=== PATIENT | male | born 1930 | race Caucasian/White ===

== ENCOUNTER 2018-04-29 11:38 | Emergency (ER) | payer MEDICARE ==
--- NOTE | 2018-04-29 12:54 | RAD ---
INDICATION: Right clavicle injury COMPARISON: None TECHNIQUE: 2 views were obtained. FINDINGS: There is no clavicular fracture. There is mild a.c. and glenohumeral joint osteoarthritis. IMPRESSION: NO ACUTE FRACTURE.
--- NOTE | 2018-04-29 12:56 | RAD ---
INDICATION: Right elbow injury COMPARISON: None TECHNIQUE: AP, lateral, and oblique views were obtained. FINDINGS: There is minor underlying osteoarthritis but there is no acute fracture. There is is no joint effusion. There is soft tissue prominence at the biceps which could be related to biceps injury. This would be apparent clinically. IMPRESSION: NO ACUTE BONY FINDINGS
--- NOTE | 2018-04-29 12:57 | RAD ---
INDICATION: Fall. Right shoulder pain COMPARISON: None TECHNIQUE: Routine frontal, Y and axial views were obtained. FINDINGS: There is no acute bony change. There is a moderate a.c. and glenohumeral osteoarthritis. There are findings of calcific tendinitis. IMPRESSION: OSTEOARTHRITIS. CALCIFIC TENDINITIS.
[2018-04-29 14:35] VITALS: BP 134/86
--- NOTE | 2018-04-29 14:42 | ED ---
Upper Extremity Pain - HPI Summary HPI Summary: Patient is an 87-year-old male presenting to the ED after a fall last evening and now complaining of right shoulder and right elbow pain. There is abrasion to the right lateral side of the elbow. He endorses pain worsening to the right shoulder and is able to flex and extend at the elbow without pain. He is unable to abduct the shoulder, but is able to flex but not extend. 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 Onset/Duration: Started Hours Ago Timing: Constant Severity Initially: Moderate Severity Currently: Moderate Pain Location: Shoulder Character: Aching Aggravating Factor(s): Abduction Alleviating Factor(s): Rest, Ice, Compression Associated Signs & Symptoms: Negative: Swelling, Redness, Bruising, Weakness, Numbness/Tingling Related History: Dominant Hand Right - Risk Factors Non-Orthopedic Risk Factor: Negative DVT Risk Factors: Negative Septic Arthritis Risk Factor: Extremes of Age Compartment Syndrome Risk Factors: Pain - Allergies/Home Medications Allergies/Adverse Reactions: Allergies Allergy/AdvReac Type Severity Reaction Status Date / Time No Known Allergies Allergy Verified 04/29/18 11:40 PMH/Surg Hx/FS Hx/Imm Hx Previously Healthy: Yes Endocrine/Hematology History: Reports: Hx Thyroid Disease - ON MED Denies: Hx Diabetes Cardiovascular History: Reports: Hx Hypercholesterolemia, Other Cardiovascular Problems/Disorders - ONE STENT PLACED -2008, "leaky heart valve" Denies: Hx Hypertension, Hx Pacemaker/ICD GI History: Denies: Other GI Disorders History: Denies: Hx Dialysis, Hx Renal Disease Musculoskeletal History: Reports: Hx Arthritis Sensory History: Reports: Hx Contacts or Glasses - GLASSES Denies: Hx Hearing Aid Opthamlomology History: Reports: Hx Contacts or Glasses - GLASSES Psychiatric History: Denies: Hx Panic Disorder - Surgical History Surgery Procedure, Year, and Place: CARDIAC STENT. RT KNEE REPLACEMENT. 10/17 AND 11/18 LAMINECTOMY AND KYPHOPLASTY. BILATERAL SHOULDER ARTHROSCOPICS Hx Anesthesia Reactions: No - Immunization History Hx Pertussis Vaccination: No Immunizations Up to Date: Unable to Obtain/Confirm Infectious Disease History: No Infectious Disease History: Denies: Traveled Outside the [place] in Last 30 Days - Social History Occupation: Unemployed Lives: Alone Alcohol Use: Weekly Hx Substance Use: No Substance Use Type: Reports: None Hx Tobacco Use: Yes Smoking Status (MU): Former Smoker Type: Cigarettes Amount Used/How Often: 1-2 PPD Length of Time of Smoking/Using Tobacco: 10 Have You Smoked in the Last Year: No Review of Systems Constitutional: Negative Negative: Fever, Chills, Fatigue Negative: Palpitations, Chest Pain Negative: Shortness Of Breath, Cough Genitourinary: Negative Positive: no symptoms reported, see HPI Positive: Arthralgia - right shoulder - unable to abduct past 30 degrees, Myalgia Positive: Other - right elbow avulsion to the skin Neurological: Negative All Other Systems Reviewed And Are Negative: Yes Physical Exam Triage Information Reviewed: Yes Vital Signs On Initial Exam: Initial Vitals Temp Pulse Resp BP Pulse Ox 98.8 F 92 18 156/98 96 04/29/18 11:40 04/29/18 11:40 04/29/18 11:40 04/29/18 11:40 04/29/18 11:40 Vital Signs Reviewed: Yes Appearance: Positive: No Pain Distress, Well-Nourished Skin: Positive: Warm, Skin Color Reflects Adequate Perfusion Head/Face: Positive: Normal Head/Face Inspection Neck: Positive: Supple, No Lymphadenopathy Respiratory/Lung Sounds: Positive: Clear to Auscultation, Breath Sounds Present Cardiovascular: Positive: RRR, Pulses are Symmetrical in both Upper and Lower Extremities Musculoskeletal: Positive: Pain @ - right shoulder pain s/p fall -- RTC Neurological: Positive: Speech Normal Psychiatric: Positive: Normal, Affect/Mood Appropriate AVPU Assessment: Alert Diagnostics - Vital Signs Vital Signs Temp Pulse Resp BP Pulse Ox 04/29/18 11:40 98.8 F 92 18 156/98 96 - Laboratory Lab Statement: Any lab studies that have been ordered have been reviewed, and results considered in the medical decision making process. Course/Dx - Course Course Of Treatment: The patient is evaluated for right shoulder, right elbow pain and an abrasion/avulsion to the lateral right elbow. Shoulder and elbow x- rays obtained which showed no acute bony findings, however osteoarthritis. Patient is unable to abduct past 30, symptoms resolved at rest and internal rotation. I discussed with the patient this may be a rotator cuff injury and will need to follow-up with orthopedics. Patient declines sling. Patient has pain medication at home as needed and will encourage ibuprofen short-term. Abrasion was cleaned, occlusive gauze applied and gauze wrapped. - Diagnoses Differential Diagnosis/HQI/PQRI: Positive: Contusion, Fracture (Closed), Strain , Sprain Provider Diagnoses: Injury of right shoulder Discharge - Sign-Out/Discharge Documenting (check all that apply): Discharge/Admit/Transfer - Discharge Plan Condition: Stable Disposition: HOME Patient Education Materials: Rotator Cuff Injury (ED) Referrals: Darrin Islas MD [Medical Doctor] - Jimmie Barber MD [Primary Care Provider] - Additional Instructions: Please follow up with orthopedics Call tomorrow for an appt Take pain medications as needed - Billing Disposition and Condition Condition: STABLE Disposition: Home
== END 2018-04-29 14:33 | disposition home or self-care (01) ==
LOC: ED 11:38
DX: S49.91XA Unspecified injury of right shoulder and upper arm, initial encounter (principal); S50.311A Abrasion of right elbow, initial encounter; W19.XXXA Unspecified fall, initial encounter; Y92.9 Unspecified place or not applicable; M19.011 Primary osteoarthritis, right shoulder; M75.31 Calcific tendinitis of right shoulder; E07.9 Disorder of thyroid, unspecified; Z79.899 Other long term (current) drug therapy; Z87.891 Personal history of nicotine dependence
CPT/HCPCS: 99282

== ENCOUNTER 2018-05-21 18:51 | Emergency (ER) | payer MEDICARE ==
--- OUTSIDE RECORDS SUMMARY | 2018-05-21 19:43 | XMS REPORT ---
:1930 External Reference #:[id number] Author Organization [employer] Address [address] [place] [address] [place] [address] Phone [phone] Care Team Providers Name Role Phone Jimmie Barber MD Primary Care Physician Unavailable Payers Type Date Identification Numbers Payment Provider Subscriber Commercial Effective: Policy Number: [id number] er Prog/Todays Carlos De Jesus 2007 Options Expires: 2012 PayID: [id number] [address] [address] Attn: [place] [address] [facility] Policy Number: [id number] Medicare Carlos De Jesus PayID: [id number] [address] [place] [address] Problems Date Description Provider Status Onset: 03/20/2014 Closed fracture of lumbar vertebra Beny Hi M.D. Active without spinal cord injury Onset: 05/01/2018 Disorder of bursa of shoulder region Darrin Islas MD Active Onset: 05/30/2016 Low back pain Beny Hi M.D. Active Family History Date Family Member(s) Problem(s) Comments General Osteoporosis General Thyroid Disease Social History Type Date Description Comments Lives With Alone Occupation Retired ETOH Use Denies alcohol use Smoking Patient is a former smoker Recreational Drug Use Denies Drug Use Allergies, Adverse Reactions, Alerts Date Description Reaction Status Severity Comments 03/20/2014 NKDA active Medications Medication Date Status Form Strength Qnty SIG Indications Ordering Provider Aspirin Ec 00/00/ Active Tablets DR 81mg 90tab 1 tablet Unknown Lo-Dose 0000 s daily. Plavix 00/00/ Active Tablets 75mg 30tab 1 by Unknown 0000 s mouth every day Tylenol Extra 00/ Active Tablets 500mg 100ta 2 by Unknown Strength 0000 bs mouth as needed Levothyroxine 00/ Active Tablets 112mcg 90tab 1 by Unknown Sodium 0000 s mouth every day Vitamin B12 / Active Tablets 100mg 90tab once a Unknown 0000 s day Lovastatin / Active Tablets 20mg 90tab by mouth Unknown 0000 s every night at bedtime Cyclobenzaprine / Hx Tablets 5mg 30tab take 1 Unknown HCL 0000 - s tablet 04/10/ by mouth 2013 three times as needed Lisinopril / Hx Tablets 20mg 90tab 1 by Unknown 0000 - s mouth 04/10/ 2013 day Meloxicam / Hx Tablets 7.5mg 30tab 1 by Unknown 0000 - s mouth 04/10/ 2013 day Pravastatin / Hx Tablets 40mg 90tab 1 tablet Unknown Sodium 0000 - s daily at 09/10/ bedtime 2013 Milk Of Magnesia / Hx Suspension 400mg/5ML 473un 30 ml's Unknown 0000 - its on the 2013 with no bm as needed Medications Administered in Office Medication Date Status Form Strength Qnty SIG Indications Ordering Provider Depomedrol Administered Injection Aminta 40MG 018 Marker, RPA-C Vital Signs Date Vital Result Comment 05/01/2018 Height 63 inches 5'3" Weight 163.75 lb Heart Rate 72 /min BP Systolic 136 mmHg BP Diastolic 78 mmHg Respiratory Rate 12 /min Pain Level 8 BMI (Body Mass Index) 29.0 kg/m2 04/21/2017 Height 63 inches 5'3" Weight 176.00 lb Heart Rate 68 /min BP Systolic Sitting 124 mmHg BP Diastolic Sitting 70 mmHg Pain Level 10 BMI (Body Mass Index) 31.2 kg/m2 05/30/2016 Height 63 inches 5'3" Weight 176.00 lb Heart Rate 70 /min BP Systolic Sitting 140 mmHg BP Diastolic Sitting 80 mmHg Pain Level 5 BMI (Body Mass Index) 31.2 kg/m2 05/30/2016 Height 63 inches 5'3" 09/11/2014 Height 63 inches 5'3" Weight 176.00 lb Heart Rate 78 /min BP Systolic Sitting 140 mmHg BP Diastolic Sitting 90 mmHg Pain Level 5 back,leg's BMI (Body Mass Index) 31.2 kg/m2 09/10/2014 Height 63 inches 5'3" Weight 176.00 lb Heart Rate 62 /min BP Systolic Sitting 120 mmHg BP Diastolic Sitting 80 mmHg Pain Level 8 back,hips & legs BMI (Body Mass Index) 31.2 kg/m2 04/10/2014 Weight 169.75 lb Heart Rate 88 /min BP Systolic 118 mmHg BP Diastolic 66 mmHg Body Temperature 97.8 F Pain Level 2 hurts around waist 03/20/2014 Height 63 inches 5'3" Weight 169.00 lb BP Systolic 120 mmHg BP Diastolic 60 mmHg Pain Level 9 low back BMI (Body Mass Index) 29.9 kg/m2 Results Test Date Test Result H/L Range Note Istat BUN/Crea/Egfr/V Mainct 04/18/2017 Poc Bun Mainct 17 mg/dL 9-18 Poc Crea Mainct 1.2 mg/dL High 0.6-0.9 GFR Non- MCT 57.7 >60 GFR Mainct 74.2 >60 1 1 Because ethnic data is not always readily available, this report includes an eGFR for both -Americans and non- Americans. The National Kidney Disease Education Program (NKDEP) does not endorse the use of the MDRD equation for patients that are not between the ages of 18 and 70, are , have extremes of body size, muscle mass, or nutritional status, or are non- or non-. According to the National Kidney Foundation, irrespective of diagnosis, the stage of the disease is based on the level of kidney function: Stage Description GFR(mL/min/1.73 m(2)) 1 Kidney damage with normal or decreased GFR 90 2 Kidney damage with mild decrease in GFR 60-89 3 Moderate decrease in GFR 30-59 4 Severe decrease in GFR 15-29 5 Kidney failure <15 (or dialysis) Procedures Date CPT Code Description Status 05/01/2018 22511 Inject/Drain Joint/Bursa Major W/O US Completed 04/03/2014 16065 EKG, Interpretation Only Completed 04/02/2014 44681 EKG, Interpretation Only Completed 04/02/2014 60167 EKG, Interpretation Only Completed 04/02/2014 15572 PRQ Vetebral Augmentation Lumbar (kyphoplasty) Completed 08/15/2008 56307 Treadmill Interp/Report Only Completed 08/15/2008 26824 Stress Test Supervsn W/Out I/R Completed 08/15/2008 53310 Stress Test Supervsn W/Out I/R Completed Encounters Type Date Location Provider CPT E/M Dx Office Visit 05/01/2018 [facility], 77297 M75.51 1:45p Amrita CABALLERO W19.xxxA Office Visit 04/21/2017 10:30a [facility] Beny Hi M.D. 88125 M54.5 Of [facility] Office Visit 05/30/2016 3:30p [facility] Grace Fiore PA-C 10381 M54.5 Of [facility] Office Visit 09/11/2014 3:15p [facility] Beny Hi M.D. 56488 805.4 Of [facility] V13.51 Office Visit 09/10/2014 9:45a [facility] Beny Hi M.D. 60585 805.4 Of [facility] V13.51 729.5 Office Visit 04/02/2014 2:15p [facility] Sheila Coon, 96188 427.0 [facility] 805.8 401.9 Office Visit 03/20/2014 10:30a [facility] Beny Hi M.D. 44256 805.4 Of [facility] Plan of Care Future Appointment(s):06/12/2018 1:30 pm - D[facility]in [facility]las [facility] at [facility]/01[facility]2018 - Darrin Islas, MDM75.51 Bursitis of right shoulderNew Therapy:Physical TherapyFollow up:Follow up: 6 [id number] Unspecified fall, initial encounter
--- NOTE | 2018-05-21 20:47 | ED ---
Complex/Multi-Sys Presentation - HPI Summary HPI Summary: This is scribanne Al documenting for attending physician Carlos Shelton M.D. Pt is a 87 y/o M w/ c/o injury on right lower leg and right arm. Three days ago, he states lower leg was pulled by dog. Wound to right leg is erythematous, swollen, and warm to touch. Pt also notes an abrasion to right arm which he reports has been present for four weeks, as well as shoulder pain. On triage, pain is rated 7/10 and movement + palpations of right arm and leg are noted to worsen pain. He denies fever and loss of appetite. Pt also claims to have fallen 2-3 times in the past week. - History Of Current Complaint Chief Complaint: EDExtremityLower Hx Obtained From: Patient Onset/Duration: Lasting Days - right leg, Lasting Weeks - right arm, Still Present Timing: Constant Severity Initially: Moderate - 7/10 Location: Pain At: - right lower leg, right arm, shoulders Aggravating Factor(s): movement and palpation of right leg and arm Associated Signs And Symptoms: Positive: Recent Trauma - dog pulled right lower leg; reports falling 2-3 times last week, Other - pain, erythema, edema, and warm to touch, of right leg; abrasion right arm; shoulder pain - Allergies/Home Medications Allergies/Adverse Reactions: Allergies Allergy/AdvReac Type Severity Reaction Status Date / Time No Known Allergies Allergy Verified 05/21/18 19:02 PMH/Surg Hx/FS Hx/Imm Hx Endocrine/Hematology History: Reports: Hx Thyroid Disease - ON MED Denies: Hx Diabetes Cardiovascular History: Reports: Hx Hypercholesterolemia, Other Cardiovascular Problems/Disorders - ONE STENT PLACED -2008, "leaky heart valve" Denies: Hx Hypertension, Hx Pacemaker/ICD GI History: Denies: Other GI Disorders History: Denies: Hx Dialysis, Hx Renal Disease Musculoskeletal History: Reports: Hx Arthritis Sensory History: Reports: Hx Contacts or Glasses - GLASSES Denies: Hx Hearing Aid Opthamlomology History: Reports: Hx Contacts or Glasses - GLASSES Psychiatric History: Denies: Hx Panic Disorder - Surgical History Surgery Procedure, Year, and Place: CARDIAC STENT. RT KNEE REPLACEMENT. 10/17 AND 11/18 LAMINECTOMY AND KYPHOPLASTY. BILATERAL SHOULDER ARTHROSCOPICS Hx Anesthesia Reactions: No Infectious Disease History: No Infectious Disease History: Denies: Traveled Outside the [place] in Last 30 Days - Family History Known Family History: Negative: Blood Disorder - Social History Alcohol Use: Weekly Hx Substance Use: No Substance Use Type: Reports: None Hx Tobacco Use: Yes Smoking Status (MU): Former Smoker Type: Cigarettes Amount Used/How Often: 1-2 PPD Length of Time of Smoking/Using Tobacco: 10 Have You Smoked in the Last Year: No Review of Systems Negative: Fever Positive: Other - NEGATIVE: loss of appetite Positive: Other - right lower leg warm to touch, erythema, edema, and pain; shoulder pain Positive: Other - right arm abrasion All Other Systems Reviewed And Are Negative: Yes Physical Exam - Summary Physical Exam Summary: Appearance: Well-appearing, Well-nourished, lying in bed comfortable Skin: Warm, dry; right elbow has superficial half dollar shaped wound w/o infection. Right mid leg, small abrasion with surrounding cellulitis w/o lymphangetic streaking and fluctuance Eyes: sclera anicteric, no conjunctival pallor ENT: mucous membranes moist Neck: deferred Respiratory: No signs of respiratory distress Cardiovascular: Appears well perfused, pulses are nml Abdomen: deferred Musculoskeletal: Moving all 4 extremities without obvious discomfort Neurological: Awake and alert, mentation is normal, speech is fluent and appropriate Psychiatric: affect is normal, does not appear anxious or depressed Triage Information Reviewed: Yes Vital Signs On Initial Exam: Initial Vitals Temp Pulse Resp BP Pulse Ox 98.4 F 90 17 155/100 95 05/21/18 19:02 05/21/18 19:02 05/21/18 19:02 05/21/18 19:02 05/21/18 19:02 Vital Signs Reviewed: Yes Diagnostics - Vital Signs Vital Signs Temp Pulse Resp BP Pulse Ox 05/21/18 19:02 98.4 F 90 17 155/100 95 - Laboratory Result Diagrams: 05/21/18 21:22 05/21/18 21:22 Lab Statement: Any lab studies that have been ordered have been reviewed, and results considered in the medical decision making process. Complex Multi-Symp Course/Dx - Diagnoses Provider Diagnoses: Cellulitis Discharge - Sign-Out/Discharge Documenting (check all that apply): Patient Departure - Discharge Plan Condition: Good Disposition: HOME Prescriptions: Cefadroxil CAP* [Duricef CAP*] 500 mg PO BID #20 cap Patient Education Materials: Cellulitis (ED) Referrals: Marlon Mcfarlane MD [Medical Doctor] - Jimmie Barber MD [Primary Care Provider] - Additional Instructions: I think you might benefit by being seen in the wound clinic. You can call your primary doctor and see if they can give you a referral. The elbow wound may need some specialized dressing to help it heal properly. In the meantime just keep a non adherent gauze dressing on it. - Billing Disposition and Condition Condition: GOOD Disposition: Home
[2018-05-21] MEDS ORDERED: Cefadroxil CAP* 500 MG PO ONE (20:50)
[2018-05-21 21:38] LABS: ABS Basophils 0 10^3/ul (0-0.2); ABS Eosinophils 0.3 10^3/ul (0-0.6); ABS Lymphocytes 0.9 10^3/ul (1.0-4.8); ABS Monocytes 0.5 10^3/ul (0-0.8); ABS Nucleated RBC 0 10^3/ul; Eosinophil % 4.9 % (0-6); Hematocrit 37 % (42-52); Hemoglobin 12.4 g/dl (14.0-18.0); Lymphocyte % 16.3 % (25-47); Mean Corpuscular HGB Conc 34 g/dl (31-36); Mean Corpuscular Hemoglobin 30 pg (27-31); Mean Corpuscular Volume 90 fL (80-94); Mean Platelet Volume 8.4 um3 (7.4-10.4); Nucleated Red Blood Cells % 0; Platelet Count 219 10^3/ul (150-450); Red Blood Count 4.13 10^6/ul (4.00-5.40); Red Cell Distribution Width 15 % (10.5-15); White Blood Count 5.8 10^3/ul (3.5-10.8)
[2018-05-21 21:47] LABS: EGFR Non-African American 64.3 (>60)
[2018-05-21 22:11] VITALS: BP 145/98
== END 2018-05-21 22:07 | disposition home or self-care (01) ==
LOC: ED 18:51
DX: L03.115 Cellulitis of right lower limb (principal); S40.811A Abrasion of right upper arm, initial encounter; W18.30XA Fall on same level, unspecified, initial encounter; Z91.81 History of falling; Y93.9 Activity, unspecified; Y92.9 Unspecified place or not applicable; M25.511 Pain in right shoulder; E07.9 Disorder of thyroid, unspecified; E78.00 Pure hypercholesterolemia, unspecified; I38 Endocarditis, valve unspecified; Z95.5 Presence of coronary angioplasty implant and graft; M19.90 Unspecified osteoarthritis, unspecified site; Z96.651 Presence of right artificial knee joint; Z87.891 Personal history of nicotine dependence
CPT/HCPCS: 36415; 80048; 85025; 99282; A9270-GY

== ENCOUNTER 2019-09-21 17:02 | Emergency (ER) | payer MEDICARE ==
--- NOTE | 2019-09-21 18:25 | ED ---
Back Pain - HPI Summary HPI Summary: Patient with history of chronic back pain complains of significant increase in pain over the past couple days radiating to bilateral hips. Pain with movement , minimal pain at rest. Denies trauma, leg pain, fever, cough, sore throat, CP , SOB, N/V/D, abdominal pain, change in urine, change in BM, testicular or penile symptoms. Patient has existing Rx for hydrocodone 10 mg, receives seven- day supply every 3 months which he uses for breakthrough pain. Patient states he has been taking them more frequently in the past couple days with moderate relief of pain. States he saw Dr. Hi "couple years ago" for lumbar vertebral fracture. - History of Current Complaint Chief Complaint: EDBackInjuryPain Stated Complaint: BACK PAIN PER PT Time Seen by Provider: 09/21/19 18:04 Hx Obtained From: Patient, Family/Certified Professional Midwife Onset/Duration: Gradual Onset, Lasting Days Onset/Duration: Started Days Ago Timing: Intermittent Back Pain Location: Radiates To Severity Initially: Moderate Severity Currently: Severe Pain Intensity: 10 Pain Scale Used: 0-10 Numeric Character: Sharp, Aching, Throbbing Aggravating Symptom(s): Movement, Bending, Walking Alleviating Symptom(s): Rest, Position Associated Signs And Symptoms: Positive: Negative - Risk Factors Cauda Equina Risk Factors: Negative - Allergies/Home Medications Allergies/Adverse Reactions: Allergies Allergy/AdvReac Type Severity Reaction Status Date / Time No Known Allergies Allergy Verified 09/21/19 17:06 PMH/Surg Hx/FS Hx/Imm Hx Endocrine/Hematology History: Reports: Hx Thyroid Disease - ON MED Denies: Hx Diabetes Cardiovascular History: Reports: Hx Hypercholesterolemia, Other Cardiovascular Problems/Disorders - ONE STENT 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 RT KNEE REPLACEMENT. 10/17 AND 11/18 LAMINECTOMY AND KYPHOPLASTY. BILATERAL SHOULDER ARTHROSCOPICS Hx Anesthesia Reactions: No Infectious Disease History: No Infectious Disease History: Denies: Traveled Outside the [place] in Last 30 Days - Family History Known Family History: Negative: Blood Disorder - Social History Alcohol Use: Weekly Hx Substance Use: No Substance Use Type: Reports: None Hx Tobacco Use: Yes Smoking Status (MU): Former Smoker Type: Cigarettes Amount Used/How Often: 1-2 PPD Length of Time of Smoking/Using Tobacco: 10 Have You Smoked in the Last Year: No Review of Systems Constitutional: Negative Eyes: Negative ENT: Negative Cardiovascular: Negative Respiratory: Negative Gastrointestinal: Negative Genitourinary: Negative Musculoskeletal: Other Skin: Negative Neurological: Negative Psychological: Normal All Other Systems Reviewed And Are Negative: Yes Physical Exam - Summary Physical Exam Summary: Neuro exam normal. PMS intact bilateral lower extremities. No pain with palpation of lower back, hips or lower extremities.. No ecchymosis, erythema, deformity, swelling, mass noted to spine or bilateral lower extremities or hips. Flexion of bilateral hips causes pain in hips and back. Triage Information Reviewed: Yes Vital Signs On Initial Exam: Initial Vitals Temp Pulse Resp BP Pulse Ox 97.3 F 89 16 158/83 95 09/21/19 17:02 09/21/19 17:02 09/21/19 17:02 09/21/19 17:02 09/21/19 17:02 Vital Signs Reviewed: Yes Appearance: Positive: Well-Appearing Skin: Positive: Warm Head/Face: Positive: Normal Head/Face Inspection Eyes: Positive: Normal Neck: Positive: Supple Respiratory/Lung Sounds: Positive: Clear to Auscultation Cardiovascular: Positive: Normal Abdomen Description: Positive: Nontender Musculoskeletal: Positive: Normal Neurological: Positive: Normal Psychiatric: Positive: Normal AVPU Assessment: Alert - [place] Coma Scale Best Eye Response: 4 - Spontaneous Best Motor Response: 6 - Obeys Commands Best Verbal Response: 5 - Oriented Coma Scale Total: 15 Procedures - Sedation Patient Received Moderate/Deep Sedation with Procedure: No Diagnostics - Vital Signs Vital Signs Temp Pulse Resp BP Pulse Ox 09/21/19 17:02 97.3 F 89 16 158/83 95 - Laboratory Lab Statement: Any lab studies that have been ordered have been reviewed, and results considered in the medical decision making process. Back Pain Course/Dx - Course Course Of Treatment: There triplicate form Patient with history of chronic back pain complains of significant increase in pain over the past couple days radiating to bilateral hips. Pain with movement, minimal pain at rest. Denies trauma, leg pain, fever, cough, sore throat, CP, SOB, N/V/D, abdominal pain, change in urine, change in BM, testicular or penile symptoms. Patient has existing Rx for hydrocodone 10 mg, receives seven-day supply every 3 months which he uses for breakthrough pain. Patient states he has been taking them more frequently in the past couple days with moderate relief of pain. States he saw Dr. Hi "couple years ago" for lumbar vertebral fracture, had "some procedure done" and then was told "there was nothing else they could do for him ". Vital signs within normal limits. CT pelvis negative for pelvic traumatic abnormalities, positive for chronic L4 and L5 compression fractures. Positive for left inguinal hernia. No strenuous urination. Positive for distal colonic diverticulosis. 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 Chronic compression fractures at all levels post kyphoplasty at T11, L1 and L4.Disc ussed findings with attending Dr Landry who stated patient did not need urgent MRI at this time. Patient has been advised to follow up with Neurosurgery Dr. Clark for further evaluation. Patient able to elevate himself from the bed and ambulate with some discomfort. Patient lives alone. - Diagnoses Provider Diagnoses: Chronic back pain Discharge ED - Sign-Out/Discharge Documenting (check all that apply): Patient Departure - Discharge Plan Condition: Stable Disposition: HOME Patient Education Materials: Chronic Back Pain (DC) Referrals: Jimmie Barber MD [Primary Care Provider] - Nataliia Davis MD [Medical Doctor] - Additional Instructions: Call the clinic of neurosurgery on Monday morning to arrange for further evaluation. Return to the ED for any new or worsening symptoms. - Billing Disposition and Condition Condition: STABLE Disposition: Home
[2019-09-21] MEDS ORDERED: HYDROcodone/ACETAMIN 5-325 MG* 1 TAB PO ONE ×2 (18:34)
[2019-09-21 21:32] VITALS: BP 160/85
== END 2019-09-21 21:15 | disposition home or self-care (01) ==
LOC: ED 17:02
DX: G89.29 Other chronic pain (principal); M54.9 Dorsalgia, unspecified; Z87.891 Personal history of nicotine dependence; E03.9 Hypothyroidism, unspecified
CPT/HCPCS: 72131; 72192; 99283

== ENCOUNTER 2020-07-20 12:21 | Observation (INO) ==
[2020-07-20 13:41] LABS: ABS Basophils 0.1 10^3/ul (0-0.2); ABS Eosinophils 0.4 10^3/ul (0-0.6); ABS Lymphocytes 0.7 10^3/ul (1.0-4.8); ABS Monocytes 0.4 10^3/ul (0-0.8); ABS Neutrophils 3.3 10^3/ul (1.5-7.7); Hematocrit 38 % (42-52); Hemoglobin 12.8 g/dL (14.0-18.0); Mean Corpuscular HGB Conc 34 g/dL (31-36); Mean Corpuscular Hemoglobin 32 pg (27-31); Mean Corpuscular Volume 95 fL (80-94); Mean Platelet Volume 8.6 fL (7.4-10.4); Nucleated Red Blood Cells % 0.1; Platelet Count 209 10^3/uL (150-450); Red Blood Count 3.97 10^6 /uL (4.18-5.48); Red Cell Distribution Width 14 % (10-15); White Blood Count 4.8 10^3/uL (3.5-10.8)
[2020-07-20 13:59] LABS: Albumin 4.3 g/dL (3.2-5.2); Albumin/Globulin Ratio 1.5 (1-3); BUN/Creatinine Ratio 13.7 (8-20); Calcium 9.6 mg/dL (8.6-10.3); EGFR African American 55.1 (>60); EGFR Non-African American 45.6 (>60); Globulin 2.8 g/dL (2-4); Potassium 4.1 mmol/L (3.5-5.0); Total Bilirubin 0.5 mg/dL (0.2-1.0); Total Protein 7.1 g/dL (6.4-8.9)
[2020-07-20 14:09] LABS: Troponin I 0.03 ng/mL (<0.03)
[2020-07-20] MEDS ORDERED: Morphine 4 MG/ML VIAL (1 ml) IV ONE (14:36)
[2020-07-20] MEDS ORDERED: Iodixanol (CONTRAST) 320 MG/ML 100 ML SDV IV ONE (15:03)
[2020-07-20 15:31] LABS: T4, Total 8.87 mcg/dL (6.09-12.23)
[2020-07-20 15:34] LABS: TSH Ultra Thyroid Stim Horm 5.22 mcIU/mL (0.34-5.60)
[2020-07-20 16:41] LABS: Troponin I 0.03 ng/mL (<0.03)
[2020-07-20] MEDS ORDERED: Polyethylene Glycol 3350 17 GM PACKET PO PRN (17:33)
[2020-07-20] MEDS ORDERED: Furosemide 20 mg/2 ml IV VIAL IV ONE (18:05)
[2020-07-20 18:28] LABS: Magnesium 2.1 mg/dL (1.9-2.7)
[2020-07-20 20:03] LABS: Troponin I 0.03 ng/mL (<0.03)
[2020-07-20] MEDS: Heparin 5000 UNITS/ML 1 mL VIAL SUBCUT SCH (21:06)
[2020-07-21 00:58] LABS: Urine Appearance Clear; Urine Bilirubin Negative (Negative); Urine Blood Negative (Negative); Urine Color Colorless; Urine Glucose Negative (Negative); Urine Ketones Negative (Negative); Urine Nitrite Negative (Negative); Urine Protein Negative (Negative); Urine Specific Gravity 1.006 (1.010-1.030); Urine Urobilinogen Negative (Negative)
[2020-07-21] MEDS: Heparin 5000 UNITS/ML 1 mL VIAL SUBCUT SCH ×2 (05:31→13:44)
[2020-07-21 06:09] LABS: Albumin 3.9 g/dL (3.2-5.2); Albumin/Globulin Ratio 1.3 (1-3); BUN/Creatinine Ratio 12.2 (8-20); Calcium 9.5 mg/dL (8.6-10.3); EGFR African American 54.3 (>60); EGFR Non-African American 44.9 (>60); Total Bilirubin 0.6 mg/dL (0.2-1.0); Total Protein 6.9 g/dL (6.4-8.9)
[2020-07-21] MEDS ORDERED: Furosemide 40 mg/4 ml IV VIAL IV SCH (09:00)
[2020-07-21] MEDS ORDERED: Aspirin EC 81 mg TAB.EC (enteric coated) PO SCH (09:00)
[2020-07-21 15:33] VITALS: BP 112/65
== END 2020-07-21 17:00 | disposition home or self-care (01) ==
LOC: MEDTELE 12:21 → ED 12:21 → MEDTELE 18:12
PROVIDERS: ADMIT Internal Medicine; ATTEND Hospitalist